=== PATIENT | female | born 2000 | race African-American/Black ===

== ENCOUNTER 2020-06-18 07:07 | Day surgery (SDC) | payer OTHER ==
[~2020-06-18] VITALS: Ht 160 cm; Wt 88.8 kg
[2020-06-18 07:30] VITALS: BP 123/96; PULSE 73; TEMP 97.9
[2020-06-18] MEDS ORDERED: PRINIVIL10 MG PO (07:30)
[2020-06-18 09:00] VITALS: BP 121/86; PULSE 99; TEMP 97.8
--- NOTE | 2020-06-18 09:00 | NUR ---
Patient arrives back to [facility] drowsy, transfered from cart to chair with standby assist and without any complications. Patient monitor applied, vitals stable. Patient given water.
[2020-06-18 09:15] VITALS: BP 104/88; PULSE 89
--- NOTE | 2020-06-18 09:15 | NUR ---
Dr Woodson into visit with patient and patient's grandmother to go over procedure results.
[2020-06-18 09:25] VITALS: BP 113/75; PULSE 76
--- NOTE | 2020-06-18 09:30 | NUR ---
Patient tolerated water without any nausea. Patient requests crackers to take home/eat on the way home.
--- NOTE | 2020-06-18 09:35 | NUR ---
Dismissal instructions gone over with patient and patient's grandmother. Both verbalize understanding, and all questions answered.
--- NOTE | 2020-06-18 09:40 | NUR ---
Patient discharged to private vehilce her grandmother is driving at patient enterance. Patient and family leave thanking staff for services.
== END 2020-06-18 09:40 | disposition home or self-care (01) ==
LOC: SDCO 07:07
PROVIDERS: Internal Medicine Gastroenterology
DX: K59.00 Constipation, unspecified (principal); K92.1 Melena; R19.7 Diarrhea, unspecified; I10 Essential (primary) hypertension; K29.50 Unspecified chronic gastritis without bleeding; K21.9 Gastro-esophageal reflux disease without esophagitis; Z90.5 Acquired absence of kidney; E28.2 Polycystic ovarian syndrome; Z20.828 Contact with and (suspected) exposure to other viral communicable diseases
CPT/HCPCS: J2704; J7120